=== PATIENT | male | born 1940 | race Caucasian/White ===

== ENCOUNTER 2016-06-27 16:18 | Observation (INO) | payer OTHER ==
--- NOTE | 2016-06-27 17:12 | EDPHY ---
[id number] HPI CHIEF COMPLAINT: Abdominal pain, abdominal bloating, trouble urinating, hematuria, left rib pain HISTORY OF PRESENT ILLNESS: this patient is a 75-year-old male significant past medical history for BPH, previous multiple prostate surgery, presents to the emergency room with abdominal bloating, abdominal pain, trouble urinating, hematuria, and left focal rib pain. Patient states that trouble urinating has been going on for a year, he has to push to urinate and he urinates 20 to 30 cc at a time. Tells me this is normal for him however this has gotten slightly worse with worsening trouble urinating however decided come the emergency room today as his abdomen is feeling more bloating is having more lower abdominal pain across his entire abdomen. He tells me also of note he had left lateral lower rib pain it is closely tender with palpation tells me that he was seen at an urgent care had x-ray and was told that everything was fine could not identify rib fracture. However if he coughs, or you press on his left lateral lower rib he has exquisite pain. Does not remember trauma. He tells me last night he felt worse abdominal pain with abdominal bloating and was having hard time rolling over onto his abdomen to sleep as he has great discomfort. Denies fever, denies diarrhea he does tell me that he took some narcotic pain medicine which has caused him to not have a bowel movement in 5 days. Past Medical History: BPH Past Surgical History: inguinal hernia repair, multiple prostate surgery Social History: denies daily use of drugs, tobacco, occasional alcohol use Family History: noncontributory ROS REVIEW OF SYSTEMS: A comprehensive 10 point review of systems is otherwise negative aside from elements mentioned in the history of present illness. Exam Constitutional triage nursing summary reviewed, vital signs reviewed, awake/ alert. Eyes normal conjunctivae and sclera, EOMI, PERRLA. HENT normal inspection, atraumatic, moist mucus membranes, no epistaxis, neck supple/ no meningismus, no raccoon eyes. Respiratory clear to auscultation bilaterally, normal breath sounds, no respiratory distress, no wheezing. Cardiovascular left chest wall: tender palpation left lateral lower rib no crepitus, no ecchymosis, no flail chest, rate normal, regular rhythm, no murmur , no edema, distal pulses normal. Gastrointestinal soft, hypoactive bowel sounds, mildly tender across the mid abdomen, no rebound, no guarding, normal bowel sounds, no distension, no pulsatile mass. Genitourinary no CVA tenderness. Musculoskeletal no midline vertebral tenderness, full range of motion, no calf swelling, no tenderness of extremities, no meningismus, good pulses, neurovascularly intact. Skin pink, warm, & dry, no rash, skin atraumatic. Neurologic awake, alert and oriented x 3, AAOx3, moves all 4 extremities equally, motor intact, sensory intact, CN II-XII intact, normal cerebellar, normal vision, normal speech. Psychiatric normal mood/affect. Heme/Lymph/Immune no lymphadenopathy. Differential diagnosis includes but is not limited to and in no particular order : UTI, cystitis, urinary obstruction, BPH, prostate bleed Bowel obstruction, appendicitis, gallbladder disease, diverticulitis, colitis, enteritis, perforated viscus, gastritis, GERD, esophagitis, urinary tract infection, pyelonephritis, kidney stones Medical Decision Making: this patient had an IV established, we will check blood work, patient had a CT scan abdomen pelvis with IV contrast to rule out acute intra-abdominal pathology, check urinalysis, bladder scanned for retained urine, received IV fluids he does not want pain medicine or nausea medicine at this time. Re-evaluation: CT scan of the abdomen pelvis with IV contrast The results of the study are shows left lower lobe pneumonia, pleural effusion. The study was read by Dr. Gerard I viewed the images myself on the PACS system. 1943: Re-evaluation at this time patient CT abdomen pelvis does show a left lower lobe pneumonia with pleural effusion this could be a pulmonary infarct with underlying PE however due to the contrast load in the emergency room I am unable at this time to do an angiogram. I will admit him for further evaluation of this left lower lobe pneumonia he does have reproducible pleuritic pain on exam as well as inspiratory pleuritic pain. As for his abdominal pain and hematuria have not found anything acute explain the specifically there is no ruptured AAA, renal mass or bladder mass. I will admit this patient for further evaluation of this left lower lobe infiltrate still not ruled out pulmonary embolism. I spoke with Dr. Mixon she requested they do a D-dimer, EKG, troponin, ultrasound bilateral lower extremities this is all been ordered however I still feel that the patient will need to be admitted I will Lovenox the patient. EKG interpretation by me on record in [employer] system. Impression Time of EKG 1956, sinus rhythm rate of 73, no acute ischemic changes specifically no ST elevation, ST depression, T-wave abnormality prolonged intervals. Unremarkable EKG there is a left anterior fascicular block. 2040: Is noted this patient does have a positive D-dimer. Left lower lobe infiltrate pleural effusion possibly lung infarct underlying PE will need further evaluation of this. I did Lovenox this patient 1 milligram/kilogram. Ultrasound of the A bilateral lower extremity. The results of the study are negative for DVTs. I discussed the results of this study with the radiologist Dr. Cottrell Source: Patient - Personal History Current Tetanus Diphtheria and Acellular Pertussis (TDAP): Yes - Medical/Surgical History Hx Asthma: No Hx Chronic Respiratory Disease: No Hx Diabetes: No Hx Cardiac Disease: No Hx Renal Disease: No Hx Cirrhosis: No Hx Alcoholism: No Hx HIV/AIDS: No Hx Splenectomy or Spleen Trauma: No Other PMH: prostate CA - Social History Smoking Status: Former smoker Constitutional: Initial Vital Signs Temperature (C) 36.8 C 06/27/16 16:20 Heart Rate 79 06/27/16 16:20 Respiratory Rate 18 06/27/16 16:20 Blood Pressure 140/86 H 06/27/16 16:20 O2 Sat (%) 94 06/27/16 16:20 O2 Delivery Mode Room Air Allergies/Adverse Reactions: No Known Allergies Allergy (Verified 06/27/16 16:18) Home Medications: Medication Instructions Recorded Aspirin EC [Aspirin EC 81 mg (*)] 81 mg PO DAILY 06/27/16 diphenhydrAMINE [Benadryl 25 MG 25 mg PO HS 06/27/16 (*)] Medical Decision Making - Data Points Laboratory Results: Laboratory Results 06/27/16 17:45 06/27/16 17:45 Medications Given: Discontinued Medications Aspirin Buffered (Aspirin Ec) 81 mg PO DAILY MENDEZ Stop: 12/25/16 14:59 Last Admin: 06/28/16 15:13 Dose: Not Given Enoxaparin Sodium (Lovenox) 78 mg SC EDNOW ONE Stop: 06/27/16 19:46 Last Admin: 06/27/16 20:12 Dose: 78 mg Sodium Chloride (Ns) 1,000 mls @ 0 mls/hr IV ONCE ONE PRN Reason: Wide Open Stop: 06/27/16 17:22 Last Admin: 06/27/16 18:03 Dose: 1,000 mls Azithromycin 500 mg/ Dextrose 255 mls @ 255 mls/hr IV EDNOW ONE PRN Reason: Protocol Stop: 06/27/16 20:19 Last Admin: 06/27/16 20:10 Dose: 255 mls Ceftriaxone Sodium/Dextrose (Rocephin 1 Gm (Premix)) 50 mls @ 100 mls/hr IV EDNOW ONE PRN Reason: Protocol Stop: 06/27/16 19:49 Last Admin: 06/27/16 19:30 Dose: 50 mls Sodium Chloride (Ns) 1,000 mls @ 125 mls/hr IV CONT MENDEZ Stop: 12/24/16 23:29 Last Admin: 06/28/16 13:56 Dose: 1,000 mls Magnesium Citrate (Magnesium Citrate) 300 ml PO ONCE PRN PRN Reason: Constipation Stop: 12/25/16 02:59 Last Admin: 06/28/16 15:13 Dose: 300 ml Polyethylene Glycol (Miralax) 17 gm PO DAILY MENDEZ PRN Reason: Protocol Stop: 12/24/16 23:29 Last Admin: 06/28/16 09:14 Dose: 17 gm Senna/Docusate Sodium (Senokot-S) 1 - 2 tab PO TID MENDEZ PRN Reason: Protocol Stop: 12/24/16 23:29 Last Admin: 06/28/16 15:13 Dose: Not Given Departure - Departure Disposition: [facility] Acute Clinical Impression: Left lower lobe pneumonia Qualifiers: Pneumonia type: due to unspecified organism Qualifier Code: (J18.1) Lobar pneumonia, unspecified organism Condition: Fair
[2016-06-27] MEDS ORDERED: NS 1,000 ML IV ONE (17:21)
[2016-06-27 18:00] LABS: % IMMATURE GRANULYOCYTES 0.6 % (0.0-1.1); ABSOLUTE IMMATURE GRANULOCYTES 0.05 10^3/uL (0.00-0.10); ADD DIFF? NO; ADD MORPH? NO; ADD SCAN? NO; ATYPICAL LYMPHOCYTE FLAG 20 (0-99); FRAGMENT RBC FLAG 0 (0-99); HEMATOCRIT 41.3 % (40.0-51.0); HEMOGLOBIN 14.5 g/dL (13.7-17.5); LEFT SHIFT FLG 0 (0-99); LIPEMIA HEMOLYSIS FLAG 90 (0-99); MEAN CELL HEMOGLOBIN 31.7 pg (27.9-34.1); MEAN CELL HEMOGLOBIN CONCENTR. 35.1 g/dL (32.4-36.7); MEAN CELL VOLUME 90.4 fL (81.5-99.8); MEAN PLATELET VOLUME 8.7 fL (8.7-11.7); PLATELET CLUMPS FLAG 0 (0-99); PLATELET COUNT 232 10^3/uL (150-400); RED BLOOD CELL COUNT 4.57 10^6/uL (4.40-6.38); RED CELL DISTRIBUTION WIDTH 14.2 % (11.5-15.2)
[2016-06-27 18:11] LABS: INR 1.18 (0.83-1.16)
[2016-06-27 18:12] LABS: APTT 34.8 SEC (23.0-38.0)
[2016-06-27 18:22] LABS: ALANINE AMINOTRANSFERASE 43 IU/L (21-72); ALKALINE PHOSPHATASE 57 IU/L (38-126); ANION GAP 11 mEq/L (8-16); ASPARTATE AMINOTRANSFERASE 24 IU/L (17-59); BILIRUBIN,TOTAL 0.8 mg/dL (0.1-1.4); BILIRUBIN-CONJUGATED 0.3 mg/dL (0.0-0.5); BILIRUBIN-UNCONJUGATED 0.5 mg/dL (0.0-1.1); CALCIUM 8.7 mg/dL (8.5-10.4); CARBON DIOXIDE 28 mEq/l (22-31); CHLORIDE 101 mEq/L (97-110); CREATININE 0.9 mg/dL (0.7-1.3); GLOMERULAR FILTRATION RATE > 60; GLUCOSE 109 mg/dL (70-100); POTASSIUM 4.3 mEq/L (3.5-5.2); SODIUM 140 mEq/L (134-144); TOTAL PROTEIN 5.7 g/dL (6.3-8.2)
[2016-06-27 18:22] LABS: COLOR YELLOW; LEUKOCYTE ESTERASE,URINE NEGATIVE (NEGATIVE); NITRITE,URINE NEGATIVE (NEGATIVE)
[2016-06-27 18:25] LABS: MUCUS TRACE /lpf (NONE-1+)
[2016-06-27 18:26] LABS: BACTERIA NONE SEEN /hpf (NONE SEEN)
[2016-06-27] MEDS ORDERED: IOPAMIDOL (ISOVUE 370) 100 ML BTL IV ONE (18:50)
[2016-06-27] MEDS ORDERED: AZITHROMYCIN IV 500 MG in D5W 250 ML IV ONE (19:20)
--- NOTE | 2016-06-27 19:28 | CT ---
CT Scan of the Abdomen and Pelvis (With Contrast) 1859 hours History: Abdominal pain, bloating, difficulty urinating, left lower rib pain. Comparison: CT pelvis March 2011 Technique: Axial computed tomographic images of the abdomen and pelvis were obtained with the unevent ful intravenous administration of 85 mL Isovue-300 contrast. No oral or rectal contrast which limits the study. Dose reduction techniques were utilized. CT Abdomen Findings: Lung bases: Small left pleural effusion with left lower lobe infiltrate. 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 Liver: Probable hepatic cysts the left lobe of liver measuring 1 cm without suspicious solid hepatic masses. Biliary system: No obstruction. Spleen: No splenomegaly or infarcts. Pancreas: Normal. Adrenals: Normal. Kidneys: No obstruction or solid masses. no evidence of pyelonephritis. Abdominal Aorta: Moderate atherosclerotic tortuous aorta without aneurysm or dissection. Large amount stool throughout the colon consistent with constipation. No evidence of bowel obstructio n or colitis. CT Pelvis Findings: Appendix appears normal without inflammatory changes. However there is a small am ount of fluid in the right side of the pelvis which extends into a right inguinal hernia with mesente siena fat. No bowel extending into the hernia. Moderate stool in the rectosigmoid colon. Bladder measur es 7.8 x 7 x 7.5 cm is only mildly distended. Prostate measures 5 x 2.9 x 4.2 cm with some calcificat ions and probable prior TURP defect. Severe degenerative disk disease lumbar spine especially at L2-L3, L3-L4 L4-L5 with facet arthropathy resulting in moderate central canal stenosis. Impression: 1. Small left pleural effusion with left lower lobe infiltrate probably representing pneumonia, altho ugh pulmonary infarct cannot be excluded. 2. 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 3. Constipation without bowel obstruction. 4. No urinary tract obstruction. 5. Right inguinal hernia with mesenteric fat and inflammatory changes. Consider surgical consult. 6. No evidence of appendicitis. 7. Please see above findings. Findings and recommendations discussed with Emergency Department physician, Dr. Eber Field at 19 15 hour, today. Final report concurs with initial preliminary interpretation.
[2016-06-27] MEDS ORDERED: ENOXAPARIN 80 MG/0.8 ML SYR SC ONE (19:45)
--- NOTE | 2016-06-27 19:59 | CPEKG ---
Heart Rate: 73 RR Interval: 822 P-R Interval: 188 QRSD Interval: 84 QT Interval: 392 QTC Interval: 432 P Lawrence: 37 QRS Lawrence: -50 T Wave Lawrence: 23 EKG Severity - ABNORMAL ECG - EKG Impression: SINUS RHYTHM EKG Impression: LAD, CONSIDER LEFT ANTERIOR FASCICULAR BLOCK Electronically Signed By: Mio Tamez 27-Jun-2016 20:16:23
--- NOTE | 2016-06-27 21:04 | US ---
Bilateral Lower Extremity Deep Duplex Venous Ultrasound - June 27, 2016 Indication: Abdominal pain and bloating. Technique: The right and left lower extremity deep venous system and veins of the proximal calves wer e interrogated with grayscale, color, and spectral Doppler imaging. Findings: The right and left common femoral, femoral, popliteal, greater saphenous, and paired switchboard and control room operator ior tibial and peroneal veins of the calves normally compress on grayscale imaging. The right and lef t leg deep venous system have reflected cardiac phasicity. Slow rouleaux flow is demonstrated in the right popliteal vein. Impression: Negative. No deep venous thrombosis in the right or left lower extremity. Comment: The results were discussed with Dr. Eber Field, at 8:58 p.m. on June 27, 2016.
[2016-06-27] MEDS ORDERED: ACETAMINOPHEN 500 MG TAB PO PRN (23:21)
[2016-06-27] MEDS ORDERED: ONDANSETRON DISINTEGRATING 4 MG TAB PO PRN (23:21)
[2016-06-27] MEDS ORDERED: ONDANSETRON 4 MG/2 ML VIAL IVP PRN (23:21)
[2016-06-27] MEDS ORDERED: BISACODYL 10 MG SUPP PR PRN (23:24)
[2016-06-28] MEDS: NS 1,000 ML IV SCH ×2 (00:21→13:56)
[2016-06-28] MEDS: SENNOSIDES/DOCUSATE SODIUM TAB PO SCH ×3 (01:14→15:13)
[2016-06-28] MEDS: POLYETHYLENE GLYCOL 3350 17 GM PKT PO SCH ×2 (01:14→09:14)
[2016-06-28] MEDS ORDERED: MAGNESIUM CITRATE 300 ML BOTTLE PO PRN (03:00)
[2016-06-28 05:02] LABS: % IMMATURE GRANULYOCYTES 0.7 % (0.0-1.1); ABSOLUTE IMMATURE GRANULOCYTES 0.06 10^3/uL (0.00-0.10); ADD DIFF? NO; ADD MORPH? NO; ADD SCAN? NO; ATYPICAL LYMPHOCYTE FLAG 20 (0-99); FRAGMENT RBC FLAG 0 (0-99); HEMATOCRIT 41.9 % (40.0-51.0); HEMOGLOBIN 14.2 g/dL (13.7-17.5); LEFT SHIFT FLG 10 (0-99); LIPEMIA HEMOLYSIS FLAG 90 (0-99); MEAN CELL HEMOGLOBIN 30.6 pg (27.9-34.1); MEAN CELL HEMOGLOBIN CONCENTR. 33.9 g/dL (32.4-36.7); MEAN CELL VOLUME 90.3 fL (81.5-99.8); PLATELET CLUMPS FLAG 0 (0-99); PLATELET COUNT 252 10^3/uL (150-400); RED BLOOD CELL COUNT 4.64 10^6/uL (4.40-6.38); RED CELL DISTRIBUTION WIDTH 14.1 % (11.5-15.2)
[2016-06-28 05:15] LABS: INR 1.22 (0.83-1.16); PROTIME(PATIENT) 15.4 SEC (12.0-15.0)
[2016-06-28 05:16] LABS: APTT 40.4 SEC (23.0-38.0)
[2016-06-28 05:25] LABS: ANION GAP 9 mEq/L (8-16); CALCIUM 8.4 mg/dL (8.5-10.4); CARBON DIOXIDE 27 mEq/l (22-31); CHLORIDE 104 mEq/L (97-110); CREATININE 0.7 mg/dL (0.7-1.3); GLOMERULAR FILTRATION RATE > 60; GLUCOSE 109 mg/dL (70-100); SODIUM 140 mEq/L (134-144)
[2016-06-28 05:36] LABS: TROPONIN I 0.016 ng/mL (0-0.034)
--- NOTE | 2016-06-28 06:31 | PDGENHP ---
History and Physical - Chief Complaint L back pain, constipation - History of Present Illness Patient is a 75-year-old male with no significant past medical history who presents to the ED complaining of left-sided back pain. Patient states symptoms started on 06/23 when he suddenly felt sharp pain in his left mid back/flank. He had been lifting paint cans the day prior and attributed the pain to musculoskeletal cause. He went to the urgent care for further evaluation due to the severity of the pain, chest x-ray was ordered and did not reveal any acute fracture. He was given a prescription for opioid pain and discharge. Patient will went home, was compliant with the the pain medicines and reported some improvement in symptoms. However since starting these medicines he has been unable to have a bowel movement now 5 days. Denies any nausea, vomiting but does today report loss of appetite due to abdominal distention. Given the symptoms he decided to to the ED for further evaluation. On arrival to the ED patient was afebrile hemodynamically stable. He is complaining of abdominal pain so a CT abdomen and pelvis was obtained without IV contrast. This revealed constipation without obstruction, inguinal hernia, and lower lung thompson also revealed left pleural effusion with patchy infiltrate consistent with either consolidation versus pulmonary infarct. Given patient's complaint of pleuritic left-sided posterior pain concern was for PE with pulmonary infarct. D-dimer was checked, was noted to be elevated, so patient was given empiric systemic anticoagulation with Lovenox. He was also given coverage for community-acquired pneumonia with ceftriaxone and azithromycin. He was then admitted to the hospital service for further management. History Information - Allergies/Home Medication List Allergies/Adverse Reactions: No Known Allergies Allergy (Verified 06/27/16 16:18) Home Medications: Aspirin EC [Aspirin EC 81 mg (*)] 81 mg PO DAILY 06/27/16 [Last Taken 06/26/16] diphenhydrAMINE [Benadryl 25 MG (*)] 25 mg PO HS 06/27/16 [Last Taken 06/26/16] I have personally reviewed and updated: family history, medical history, social history, surgical history - Past Medical History no pertinent PMH - Surgical History Additional surgical history: Inguinal hernia repair. Shoulder repair - Family History Positive for: non-pertinent - Social History Smoking Status: Former smoker (Quit 30 years ago) Alcohol Use: None Drug Use: None Additional social history: Works in a [employer]. Lives with Review of Systems ROS: 10pt was reviewed & negative except for what was stated in HPI & below Physical Exam Temp Pulse Resp BP Pulse Ox 36.6 C 71 18 139/73 H 92 06/28/16 03:30 06/28/16 03:30 06/28/16 03:30 06/28/16 03:30 06/28/16 03:30 O2 (L/minute) 2 Constitutional: no apparent distress, appears nourished, not in pain Eyes: PERRL, anicteric sclera, EOMI Ears, Nose, Mouth, Throat: moist mucous membranes, hearing normal, ears appear normal, no oral mucosal ulcers Cardiovascular: regular rate and rhythym, no murmur, rub, or gallop, pulses symmetric bilaterally, No JVD, No edema Peripheral Pulses: 2+: dorsalis-pedis (R), dorsalis-pedis (L) Respiratory: no respiratory distress, no rales or rhonchi, clear to auscultation Gastrointestinal: normoactive bowel sounds, soft, non-tender abdomen, no palpable masses, distension (Mild), No guarding, No rebound Genitourinary: no bladder fullness, no bladder tenderness Skin: warm, normal color, no rashes or abrasions, no fluctuance, no induration, No mottled Musculoskeletal: full muscle strength, no muscle tenderness, normal joint ROM, no joint effusions Neurologic: AAOx3, sensation intact bilaterally, CN II-XII Intact, No weakness, No numbness Psychiatric: interacting appropriately, not anxious, not encephalopathic, thought process linear Lab Data & Imaging Review 06/28/16 04:34 06/28/16 04:34 WBC 9.12 10^3/uL (3.80-9.50) 06/28/16 04:34 RBC 4.64 10^6/uL (4.40-6.38) 06/28/16 04:34 Hgb 14.2 g/dL (13.7-17.5) 06/28/16 04:34 Hct 41.9 % (40.0-51.0) 06/28/16 04:34 MCV 90.3 fL (81.5-99.8) 06/28/16 04:34 MCH 30.6 pg (27.9-34.1) 06/28/16 04:34 MCHC 33.9 g/dL (32.4-36.7) 06/28/16 04:34 RDW 14.1 % (11.5-15.2) 06/28/16 04:34 Plt Count 252 10^3/uL (150-400) 06/28/16 04:34 MPV 9.0 fL (8.7-11.7) 06/28/16 04:34 Neut % (Auto) 78.8 % (39.3-74.2) H 06/28/16 04:34 Lymph % (Auto) 8.0 % (15.0-45.0) L 06/28/16 04:34 Ballard % (Auto) 11.6 % (4.5-13.0) 06/28/16 04:34 Eos % (Auto) 0.7 % (0.6-7.6) 06/28/16 04:34 Baso % (Auto) 0.2 % (0.3-1.7) L 06/28/16 04:34 Nucleat RBC Rel Count 0.0 % (0.0-0.2) 06/28/16 04:34 Absolute Neuts (auto) 7.19 10^3/uL (1.70-6.50) H 06/28/16 04:34 Absolute Lymphs (auto) 0.73 10^3/uL (1.00-3.00) L 06/28/16 04:34 Absolute Monos (auto) 1.06 10^3/uL (0.30-0.80) H 06/28/16 04:34 Absolute Eos (auto) 0.06 10^3/uL (0.03-0.40) 06/28/16 04:34 Absolute Basos (auto) 0.02 10^3/uL (0.02-0.10) 06/28/16 04:34 Absolute Nucleated RBC 0.00 10^3/uL (0-0.01) 06/28/16 04:34 Immature Gran % 0.7 % (0.0-1.1) 06/28/16 04:34 Immature Gran # 0.06 10^3/uL (0.00-0.10) 06/28/16 04:34 PT 15.4 SEC (12.0-15.0) H 06/28/16 04:34 INR 1.22 (0.83-1.16) H 06/28/16 04:34 APTT 40.4 SEC (23.0-38.0) H 06/28/16 04:34 D-Dimer 1.35 ug/mLFEU (0.00-0.50) H 06/27/16 17:45 VBG Lactic Acid 0.9 mmol/L (0.7-2.1) 06/27/16 17:45 Sodium 140 mEq/L (134-144) 06/28/16 04:34 Potassium 4.0 mEq/L (3.5-5.2) 06/28/16 04:34 Chloride 104 mEq/L (97-110) 06/28/16 04:34 Carbon Dioxide 27 mEq/l (22-31) 06/28/16 04:34 Anion Gap 9 mEq/L (8-16) 06/28/16 04:34 BUN 10 mg/dL (7-23) 06/28/16 04:34 Creatinine 0.7 mg/dL (0.7-1.3) 06/28/16 04:34 Estimated GFR > 60 06/28/16 04:34 Glucose 109 mg/dL (70-100) H 06/28/16 04:34 Calcium 8.4 mg/dL (8.5-10.4) L 06/28/16 04:34 Magnesium 2.0 mg/dL (1.6-2.3) 06/28/16 04:34 Total Bilirubin 0.8 mg/dL (0.1-1.4) 06/27/16 17:45 Conjugated Bilirubin 0.3 mg/dL (0.0-0.5) 06/27/16 17:45 Unconjugated Bilirubin 0.5 mg/dL (0.0-1.1) 06/27/16 17:45 AST 24 IU/L (17-59) 06/27/16 17:45 ALT 43 IU/L (21-72) 06/27/16 17:45 Alkaline Phosphatase 57 IU/L (38-126) 06/27/16 17:45 Troponin I 0.016 ng/mL (0-0.034) 06/28/16 04:34 Total Protein 5.7 g/dL (6.3-8.2) L 06/27/16 17:45 Albumin 3.0 g/dL (3.5-5.0) L 06/27/16 17:45 Lipase 35.0 IU/L (23-300) 06/27/16 17:45 Urine Color YELLOW 06/27/16 17:50 Urine Appearance CLEAR 06/27/16 17:50 Urine pH 7.0 (5.0-7.5) 06/27/16 17:50 Ur Specific [place] 1.012 (1.002-1.030) 06/27/16 17:50 Urine Protein NEGATIVE (NEGATIVE) 06/27/16 17:50 Urine Ketones NEGATIVE (NEGATIVE) 06/27/16 17:50 Urine Blood 1+ (NEGATIVE) H 06/27/16 17:50 Urine Nitrate NEGATIVE (NEGATIVE) 06/27/16 17:50 Urine Bilirubin NEGATIVE (NEGATIVE) 06/27/16 17:50 Urine Urobilinogen NEGATIVE EU (0.2-1.0) 06/27/16 17:50 Ur Leukocyte Esterase NEGATIVE (NEGATIVE) 06/27/16 17:50 Urine RBC 1-3 /hpf (0-3) 06/27/16 17:50 Urine WBC 1-3 /hpf (0-3) 06/27/16 17:50 Ur Epithelial Cells NONE SEEN /lpf (NONE-1+) 06/27/16 17:50 Urine Bacteria NONE SEEN /hpf (NONE SEEN) 06/27/16 17:50 Urine Mucus TRACE /lpf (NONE-1+) 06/27/16 17:50 Ur Culture Indicated? NOT INDICATED (NI) 06/27/16 17:50 Urine Glucose NEGATIVE (NEGATIVE) 06/27/16 17:50 Visualized and Interpreted Chest x-ray results: Yes Chest X-Ray results: other (06/23 study: Small left-sided pleural effusion) Visualized and Interpreted imaging results: Yes Interpretation: CT abdomen pelvis: Constipation, no obstruction, left lower lobe infiltrate and effusion Visualized and Interpreted EKG results: Yes EKG Interpretation: Positive for: normal sinsus rhythm (With inferior Q-waves) Assessment & Plan Assessment: Patient is a 75-year-old male with no significant past medical history presents to the ED with sharp, pleuritic-type left midback pain and constipation. ED evaluation reveals left lower lobe pleural effusion and infiltrate concerning for either community-acquired pneumonia versus pulmonary embolism resulting in pulmonary infarct. Plan: # left lower lobe infiltrate with effusion Patient is afebrile, without leukocytosis, denies any symptoms of cough or respiratory infection. He is complaining of sharp posterior left pain with inspiration. Differential includes pulmonary embolism with resulting infarct versus a community-acquired pneumonia with effusion. Patient was given a contrast load 1 CT abdomen was obtained so CT angio to rule out pulmonary embolism was deferred in the ED. He was empirically treated for both pulmonary embolism and community-acquired pneumonia. He has been given IV fluid hydration overnight and will obtain CT angio to rule out the this a.m.. Will hold off on systemic anticoagulation until studies complete. It is also possible patient had musculoskeletal pain resulting and splinting with resultant atelectasis and effusion without infectious etiology. - cont abx coverage for presumed CAP - obtain CT angio chest to r/o PE - IVF hydration: NS @ 125cc/hr - trend troponins, repeat EKG - check TTE - hold on further lovenox until CT is complete # constipation Pt has not had a BM since taking opioid pain med for his back pain. Will initiate bowel regimen and hold opioids. Will give enema. - senna/colace/miralax - mg citrate, dulcolax supp prn # dispo: admit to inpt service for > 2 MN # gen: regular diet DVT ppx: given lovenox FUll code
[2016-06-28 07:42] VITALS: RESP 16
[2016-06-28] MEDS ORDERED: IOPAMIDOL (ISOVUE 370) 100 ML BTL IV ONE (07:55)
--- NOTE | 2016-06-28 10:43 | CT ---
CT Chest Angiogram Indication: Left basilar consolidation. Evaluate for pulmonary embolism. Technique: Thinly collimated multidetector helical CT imaging was performed through the chest while 90 mL of Isovue-370 were injected intravenously without complication. The images were then transferr ed to an independent workstation where multiplanar reconstructions were performed. Dose reduction benigno hniques were utilized. Comparison: CT abdomen and pelvis, June 27, 2016. Findings: CT Chest Angiogram: The central pulmonary arterial system is diagnostically opacified. No central pu lmonary embolism. The subsegmental distribution of bilateral lower lobes is partially obscured by res piratory motion artifact and left basilar consolidation. No definite subsegmental filling defect. The thoracic aorta is normal caliber with mild calcified plaque. No dissection. CT Chest: An acute nondisplaced left posterior lateral 9th rib fracture on image 234 of series 2 has moderate associated left chest wall hematoma. A subacute right 7th rib fracture in the midaxillary li ne has healing callus. No other rib fractures. No compression fracture or bone lesion. There is a small layering left pleural effusion. Volume loss and consolidation, likely atelectasis, i nvolving the posterior segment left upper lobe and left lower lobe have not significantly changed sin ce one day prior. The right lung remains clear. No edema or endobronchial lesion. No suspicious pulmo nary nodule. A noncalcified pleural plaque along the anterior left hemithorax and calcified plaque al manav the right and left hemidiaphragms are both unchanged. The heart size is normal. No pericardial or right-sided effusion. No enlarged lymph node or mass thro ughout the axilla, mediastinum, or pulmonary jonel. Scattered benign calcified granulomas are present in the left hilum and spleen. Impression: 1. No evidence of acute thrombopulmonary embolic disease. The subsegmental distribution of bilateral lower lobes is partially obscured by motion artifact. 2. Nondisplaced left 9th rib fracture with associated chest wall hematoma. No evidence of active blee ding. 3. Small layering left pleural effusion and left basilar atelectasis are likely due to the nondisplac ed 9th rib fracture. 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
--- NOTE | 2016-06-28 11:18 | ECHO ---
[id number] + + [id number] : : [place] [address] : : [phone] + + Adult Echocardiographic Report + ---+ :Name: FELICIA VITALE JStudy Date: 06/28/2016 07:54 AM : : Hospital Admission Number: [id number] Location: 217: :: 1940 Gender: Male Height: 64 in : :Age: 75 yrs Race: WH Weight: 175 lb : :Reason For Study: Possible PE/R/O heart strain : : BSA: 1.8 meters2 : + ---+ MMode/2D Measurements & Calculations IVSd: 0.76 cm LVIDd: 5.1 cm FS: 45.9 % Ao root diam: LVPWd: 0.95 cm LVIDs: 2.8 cm EDV(Teich): 3.8 cm 123.8 ml LA dimension: ESV(Teich): 4.1 cm 28.5 ml EF(Teich): 77.0 % LVLd ap4: 8.5 cm SV(MOD-sp4): EDV(MOD-sp4): 62.0 ml 84.0 ml LVLs ap4: 6.4 cm ESV(MOD-sp4): 22.0 ml EF(MOD-sp4): 73.8 % Normal Measurement Values: + + :LVIDd (3.5-5.7cm) IVSd (0.6-1.1cm) LVPWd (0.6-1.1cm) Aortic Root (2.0-3.7cm)Left Atrium (1.5-4.0cm): :LV Vol(d) (76-115ml) LV Vol(s) (29-48ml) Ejec Fraction (50-65%)PV Harvinder (0.6- 1.2m/s) TV Harvinder (0.4-1.0m/s) : :MV E Harvinder (0.8-1.0m/s)MV A Harvinder (0.3-1.0m/s)LVOT Harvinder (0.7-1.2m/s) Asc Ao Harvinder ( 0.9-1.8m/s) : + + Doppler Measurements & Calculations MV E max harvinder: 81.4 cm/sec Ao V2 max: 153.0 cm/sec MV A max harvinder: 94.8 cm/sec Ao max P.4 mmHg MV E/A: 0.86 Ao mean P.0 mmHg Ao V2 mean: 101.0 cm/sec Ao V2 VTI: 32.2 cm Left Ventricle The left ventricle is normal in size. There is normal left ventricular wall thickness. Left ventricular systolic function is normal. Ejection Fraction = 65-70%. No regional wall motion abnormalities noted. Right Ventricle The right ventricle is normal in size and function. Atria The left atrial size is normal. Right atrial size is normal. Mitral Valve The mitral valve is normal in structure and function. There is no evidence of mitral valve prolapse. There is no mitral valve stenosis. Tricuspid Valve Normal tricuspid valve. There is trace tricuspid regurgitation. Aortic Valve The aortic valve is trileaflet. The aortic valve opens well. There is no aortic stenosis. Trace aortic regurgitation. Pulmonic Valve The pulmonic valve is normal in structure and function. Trace pulmonic valvular regurgitation. Great Vessels The aortic root is normal size. Mildly dilated ascending aorta. Pericardium/Pleural There is no pericardial effusion. Conclusion A complete two-dimensional transthoracic echocardiogram was performed (2D, M-mode, Doppler and color flow Doppler). Left ventricular systolic function is normal. Ejection Fraction = 65-70%. Normal LV wall motion RV is normal in size and systolic function Trace aortic regurgitation. There is trace tricuspid regurgitation. Trace pulmonic valvular regurgitation. Mildly dilated ascending aorta. No prior echo Final Reading Physician: Dr Mindy Romano electronically signed on 06/28/2016 11:17 AM Ordering Physician: Sonal Mixon Performed By: Angela Morfin, VERONICACS
[2016-06-28 11:49] VITALS: BP 115/64; PULSE 60; TEMP 97.9; O2SAT 93
--- NOTE | 2016-06-28 14:48 | HOSPPROG ---
Hospitalist Progress Note Assessment/Plan: 75 yo M w cp, rib fx,, neg eval home today see dc summary Subjective: CT NEG FOR PE, SHOWED RIB FX Objective: Vital Signs Temp Pulse Resp BP Pulse Ox 36.6 C 60 16 115/64 93 06/28/16 11:49 06/28/16 11:49 06/28/16 11:49 06/28/16 11:49 06/28/16 11:49 Laboratory Results 06/28/16 04:34 06/28/16 04:34 06/27/16 06/28/16 06/29/16 05:59 05:59 05:59 Intake Total 440 900 Output Total 800 200 Balance -360 700 PT 15.4 SEC (12.0-15.0) H 06/28/16 04:34 INR 1.22 (0.83-1.16) H 06/28/16 04:34 - Physical Exam Constitutional: no apparent distress, appears nourished Eyes: PERRL, anicteric sclera Ears, Nose, Mouth, Throat: moist mucous membranes, hearing normal Cardiovascular: regular rate and rhythym, no murmur, rub, or gallop Respiratory: no respiratory distress, no rales or rhonchi Gastrointestinal: normoactive bowel sounds, soft, non-tender abdomen Genitourinary: No sorensen in urethra Skin: warm, normal color Musculoskeletal: full muscle strength Neurologic: AAOx3 ICD10 Worksheet Patient Problems: Problems Problem Status Diagnosed Left lower lobe pneumonia Acute
[2016-06-28] MEDS ORDERED: ASPIRIN EC 81 MG TAB PO SCH (15:00)
--- NOTE | 2016-06-28 15:04 | GDS ---
[f rep st] DISCHARGE SUMMARY DISCHARGE DIAGNOSES: 1. Left 9th rib fracture with associated small pleural effusion and pain. 2. Constipation. 3. Chest pain, attributable to rib fracture. HOSPITAL COURSE: Please see admission history and physical by Dr. Ellen Mata. The patient pre sented with chest pain and abdominal pain. CT showed a fair amount of constipation and left 9th rib fracture with effusion and lower lobe infiltrate. There was concern for pulmonary embolism. Lower e xtremity ultrasounds were negative for DVT. He had a CTA that was negative for clot, but confirmed r ib fracture with adjacent pulmonary contusion. He had an echocardiogram that was essentially unremar kable. He had negative troponins. No events on telemetry. He was given bowel medicines and moved h is bowels. Was discharged home without further workup or intervention. /[id number]/MODL
[2016-06-28] MEDS ORDERED: diphenhydrAMINE 25 MG CAP PO SCH (21:00)
== END 2016-06-28 15:47 | disposition home or self-care (01) ==
LOC: INTOOBSV 19:42 → F2W 21:10
PROVIDERS: ADMIT Internal Medicine; ATTEND Internal Medicine
DX: S22.32XA Fracture of one rib, left side, initial encounter for closed fracture (principal); J90 Pleural effusion, not elsewhere classified; J94.8 Other specified pleural conditions; K59.00 Constipation, unspecified; R07.9 Chest pain, unspecified; X58.XXXA Exposure to other specified factors, initial encounter; R10.9 Unspecified abdominal pain; N40.1 Benign prostatic hyperplasia with lower urinary tract symptoms; K40.90 Unilateral inguinal hernia, without obstruction or gangrene, not specified as recurrent; Z85.46 Personal history of malignant neoplasm of prostate; Z87.891 Personal history of nicotine dependence
CPT/HCPCS: 71275; 74177; 93005; 93306; 93970; 96361; 96365; 96367; 96372; 99285; G0378; J0456; J0696; J1650; Q9967

== ENCOUNTER → 2016-07-11 | Outpatient (CLI) | payer OTHER ==
--- NOTE | 2016-07-11 16:58 | NM ---
Nuclear Medicine Whole Body Bone Scan at 1245 hours Clinical Indications: Prostate cancer. Rib fractures. C 61 Comparison Studies: CT June 28, 2016 Technique: 20.7 mCi technetium 99m MDP were injected intravenously. Delayed images of the skeleton were obtained in anterior and posterior projections. Findings: Increased activity focally in the anterior aspect of the right seventh rib and in the anter ior aspect of the left eighth rib which correspond to fractures on CT June 28, 2016. Increased uptake involving the left glenohumeral joint consistent with degenerative arthropathy. Incr eased uptake involving the left sternoclavicular joint also likely degenerative. Mild uptake in the m idsternum without definite destructive osseous lesion on CT. Uptake involving bilateral wrists which are also likely degenerative. Uptake involving the medial left tibiofemoral compartment, right patell a and medial right tibiofemoral compartment also likely degenerative. Uptake involving the right ankl e and right tarsal bones as well as right second metatarsophalangeal joint also likely degenerative. Increased uptake involving the left L5-S1 disc space region also likely degenerative. IMPRESSION: 1. Right seventh and left eighth rib fractures. 2. Degenerative uptake in multiple joints as described above. 3. No definite evidence of osseous metastasis.
== END ==
LOC: FIMAGING 10:35
PROVIDERS: ATTEND Urology
DX: M84.48XA Pathological fracture, other site, initial encounter for fracture (principal); C61 Malignant neoplasm of prostate
CPT/HCPCS: 78306; A9503

== ENCOUNTER 2017-01-25 07:41 | Emergency (ER) | payer OTHER ==
--- NOTE | 2017-01-25 07:51 | EDPHY ---
H & P Time Seen by Provider: 01/25/17 07:45 HPI/ROS: HPI Right-sided back pain. 68-year-old male by private vehicle. This patient reports that yesterday evening he was walking down his carpeted stairs. His heel slipped out on the edge of the step he fell and landed on his right buttock. He reports that after this he was ambulatory. He did not hit his head. He is not on anticoagulants. There was no loss of consciousness. He reports that the rest of his evening was unremarkable and he went to sleep without issue. He reports waking up this morning he has had right-sided mid paraspinal pain described as sharp and cramping. No gross hematuria. He denies any loss of sensation or weakness in his extremities. No bowel or bladder incontinence. No fever. He denies any extremity pain. No other complaints. ROS: Constitutional: No fever, no chills. No weakness. Eyes: No discharge. No changes in vision. ENT: No sore throat. No nasal congestion or rhinorrhea. Respiratory: No cough. No shortness of breath. Cardiac: No chest pain, no palpitations. Gastrointestinal: No abdominal pain, no vomiting, no diarrhea. Genitourinary: No hematuria. No dysuria or increased frequency with urination. Musculoskeletal: As above. No neck pain. No myalgias or arthralgias. Skin: No rashes. Neurological: No headache. No focal weakness or altered sensation. Past medical history: Left 9th rib fracture with associated pleural effusion, admitted to our hospital for this in June of this year. Constipation. Inguinal hernia repair, shoulder surgery, prostate cancer with TURP. Social history: No drugs. No alcohol. Former smoker, quit 30 years ago, lives with his . Physical Exam: General Appearance: Alert, he appears uncomfortable. This patient is responding to questions appropriately and in full sentences. This patient appears well-hydrated and well-nourished. Head: Normocephalic atraumatic. Face: Facial bones are stable on palpation. Eyes: Pupils equal and round and reactive to light, no pallor or injection. No lid erythema or edema. Respiratory: There are no retractions, lungs are clear to auscultation with good air movement bilaterally. Chest wall is stable to AP and lateral palpation. Cardiovascular: Regular rate and rhythm. No murmur. Gastrointestinal: Abdomen is soft and nontender, no masses, bowel sounds normal. Neurological: Motor sensory function is intact. Cranial nerves are normal. Cerebellar function intact. Skin: Warm and dry, no rashes. No lacerations, abrasions. Contusion/ ecchymotic area which is not significantly tender on palpation right upper buttock. Musculoskeletal: Neck is supple and nontender. The trachea is midline. No midline cervical, thoracic, lumbar or sacral tenderness on palpation. Tenderness on palpation which is vague in the paraspinal area approximately T8 through L2 on the right. No associated soft tissue edema/swelling, erythema, warmth, ecchymosis. He is nontender on palpation of the ribs on the right side associated with this area. No bony step-off, deformity or crepitus noted on palpation. He has a negative same side and cross-side straight leg raise test. He is neurologically intact in all myotomes in dermatomes of the bilateral lower extremities. Extremities are symmetrical, full range of motion. All joints in the bilateral upper and bilateral lower extremities range without pain or impingement. No tenderness on palpation of the long bones in the bilateral upper and bilateral lower extremities. Psychiatric: No agitation. No depression. Database: EKG: Imaging: LS spine x-ray series: Degenerative changes with no significant change since prior study in June of this year. Reviewed by myself. Thoracic spine x-ray series: Degenerative features with no significant change since June this year. Reviewed by myself. CT abdomen and pelvis with IV contrast: No evidence of acute traumatic injury. No renal laceration. No acute rib fracture, transverse process fracture or vertebral fracture. No hydronephrosis or evidence of kidney stone. No other significant pathology. Results were discussed with staff radiologist Dr. Cesar Chávez. Procedures: Emergency department course: Vital signs were reviewed. Previous medical records reviewed. No contraindications to NSAIDs. Normal creatinine on June 28 of this year. He will be given 60 mg of IM Toradol and 10 mg of oral Flexeril initially. He will be sent for imaging of his LS spine and thoracic spine. 8:30 a.m., patient has returned from plain film x-rays. He still appears quite uncomfortable. He has some blood in his urine. Presentation could be secondary to a kidney stone being that he did not have any significant discomfort after the initial fall. Also must consider renal laceration with a history of trauma. He will have an IV placed. He will be given 0.5 mg of IV hydromorphone and 500 mg of IV normal saline. He will be sent for a contrast enhanced CT scan of his abdomen and pelvis to evaluate for other pathology. 9:00 a.m., patient's pain is currently well controlled. He is awaiting CT imaging. 9:50 a.m., patient re-evaluated. Results of CT scan, blood work and urine reviewed with him. His pain is well controlled. He is up and ambulatory under his own power with a normal gait. He does feel comfortable going home at this time and I feel he is safe for discharge. Follow-up and return to emergency department precautions have been thoroughly reviewed with him. Fall precautions discussed. All of his questions were answered. He was discharged home in good condition. Differential Diagnosis: The differential diagnosis on this patient includes but is not limited to vertebral compression fracture, muscle spasming of the mid back, sacroiliac joint sprain. Epidural compression syndrome, acute radiculopathy, abdominal aortic aneurysm, epidural abscess, cauda equina syndrome unlikely. This represents a partial list of diagnoses considered. These considerations are based on history, physical exam, past history, reassessment and diagnostic testing. Smoking Status: Former smoker Constitutional: Initial Vital Signs Temperature (C) 37.2 C 01/25/17 07:53 Heart Rate 74 01/25/17 07:53 Respiratory Rate 20 01/25/17 07:53 Blood Pressure 167/98 H 01/25/17 07:53 O2 Sat (%) 95 01/25/17 07:53 O2 Delivery Mode Room Air Allergies/Adverse Reactions: No Known Allergies Allergy (Verified 01/25/17 07:52) Home Medications: Medication Instructions Recorded Aspirin EC [Aspirin EC 81 mg (*)] 81 mg PO DAILY 06/27/16 diphenhydrAMINE [Benadryl 25 MG 25 mg PO HS 06/27/16 (*)] Cyclobenzaprine [Flexeril 10 MG 10 mg PO TID #9 tab 01/25/17 (*)] Medical Decision Making - Diagnostics Imaging Results: Imaging Impressions Lumbar Spine X-Ray 01/25/17 07:57 Impression: Senescent features, with no significant interval change since June. LUMBAR SPINE (AP and Lateral Upright Views, at 8:11 AM): Again noted is a levorotatory lumbar scoliosis. The vertebral body morphology and alignment is very similar to previous studies in June. There is asymmetric degenerative disk space narrowing on the right at L2-L3, and on the left at L4-L5. There is no new lytic or blastic lesion identified. There are prominent ventral traction osteophytes at multiple levels, and there is facet hypertrophy in the mid-to- lower lumbar spine. A lower canal stenosis is not excluded. There is some degenerative subchondral sclerosis of the SI joints. 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 Thoracic Spine X-Ray 01/25/17 07:57 Impression: Senescent features, with no significant interval change since June. LUMBAR SPINE (AP and Lateral Upright Views, at 8:11 AM): Again noted is a levorotatory lumbar scoliosis. The vertebral body morphology and alignment is very similar to previous studies in June. There is asymmetric degenerative disk space narrowing on the right at L2-L3, and on the left at L4-L5. There is no new lytic or blastic lesion identified. There are prominent ventral traction osteophytes at multiple levels, and there is facet hypertrophy in the mid-to- lower lumbar spine. A lower canal stenosis is not excluded. There is some degenerative subchondral sclerosis of the SI joints. 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 Abdomen CT 01/25/17 08:27 Impression: 1. Rotatory lumbar scoliosis, with no acute fracture or substantial change from 06/27/2016. 2. Interim healing of a previously-seen acute lateral left ninth rib fracture and a subacute right lateral seventh rib fracture since previous studies in June. 3. 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 4. Postsurgical changes following a prior right inguinal herniorrhaphy and a prior TURP. 5. Mild subcutaneous edema over the right buttock. Findings were discussed with Jose F Moura MD at 9:47 AM, on 2016. - Data Points Laboratory Results: Laboratory Results 01/25/17 08:34 01/25/17 08:34 01/25/17 01/25/17 01/25/17 08:34 08:34 08:05 WBC 10.92 10^3/uL H 10^3/uL (3.80-9.50) RBC 5.67 10^6/uL 10^6/uL (4.40-6.38) Hgb 17.4 g/dL g/dL (13.7-17.5) Hct 50.7 % % (40.0-51.0) MCV 89.4 fL fL (81.5-99.8) MCH 30.7 pg pg (27.9-34.1) MCHC 34.3 g/dL g/dL (32.4-36.7) RDW 14.2 % % (11.5-15.2) Plt Count 242 10^3/uL 10^3/uL (150-400) MPV 9.1 fL fL (8.7-11.7) Neut % (Auto) 79.6 % H % (39.3-74.2) Lymph % (Auto) 7.6 % L % (15.0-45.0) [place] % (Auto) 9.0 % % (4.5-13.0) Eos % (Auto) 3.0 % % (0.6-7.6) Baso % (Auto) 0.3 % % (0.3-1.7) Nucleat RBC Rel Count 0.0 % % (0.0-0.2) Absolute Neuts (auto) 8.69 10^3/uL H 10^3/uL (1.70-6.50) Absolute Lymphs (auto) 0.83 10^3/uL L 10^3/uL (1.00-3.00) Absolute Monos (auto) 0.98 10^3/uL H 10^3/uL (0.30-0.80) Absolute Eos (auto) 0.33 10^3/uL 10^3/uL (0.03-0.40) Absolute Basos (auto) 0.03 10^3/uL 10^3/uL (0.02-0.10) Absolute Nucleated RBC 0.00 10^3/uL 10^3/uL (0-0.01) Immature Gran % 0.5 % % (0.0-1.1) Immature Gran # 0.06 10^3/uL 10^3/uL (0.00-0.10) Sodium 141 mEq/L mEq/L (134-144) Potassium 4.1 mEq/L mEq/L (3.5-5.2) Chloride 100 mEq/L mEq/L (97-110) Carbon Dioxide 27 mEq/l mEq/l (22-31) Anion Gap 14 mEq/L mEq/L (8-16) BUN 14 mg/dL mg/dL (7-23) Creatinine 0.8 mg/dL mg/dL (0.7-1.3) Estimated GFR > 60 Glucose 143 mg/dL H mg/dL (70-100) Calcium 9.4 mg/dL mg/dL (8.5-10.4) Urine Color YELLOW Urine Appearance CLEAR Urine pH 6.0 (5.0-7.5) Ur Specific Agency 1.020 (1.002-1.030) Urine Protein NEGATIVE (NEGATIVE) Urine Ketones NEGATIVE (NEGATIVE) Urine Blood 1+ H (NEGATIVE) Urine Nitrate NEGATIVE (NEGATIVE) Urine Bilirubin NEGATIVE (NEGATIVE) Urine Urobilinogen 0.2 EU EU (0.2-1.0) Ur Leukocyte Esterase NEGATIVE (NEGATIVE) Urine RBC 10-15 /hpf H /hpf (0-3) Urine WBC 0-1 /hpf /hpf (0-3) Ur Epithelial Cells TRACE /lpf /lpf (NONE-1+) Urine Bacteria TRACE /hpf H /hpf (NONE SEEN) Urine Mucus 2+ /lpf H /lpf (NONE-1+) Urine Yeast OCCASIONAL /hpf H /hpf (NONE SEEN) Urine Glucose NEGATIVE (NEGATIVE) Medications Given: Discontinued Medications Cyclobenzaprine HCl (Flexeril) 10 mg PO EDNOW ONE Stop: 01/25/17 07:58 Last Admin: 01/25/17 08:10 Dose: 10 mg Hydromorphone HCl (Dilaudid) 0.5 mg IVP EDNOW ONE Stop: 01/25/17 08:29 Last Admin: 01/25/17 08:41 Dose: 0.5 mg Sodium Chloride (Ns) 500 mls @ 0 mls/hr IV ONCE ONE; Wide Open PRN Reason: Protocol Stop: 01/25/17 08:27 Last Admin: 01/25/17 08:39 Dose: 500 mls Ketorolac Tromethamine (Toradol) 60 mg IM EDNOW ONE Stop: 01/25/17 07:58 Last Admin: 08/03/17 08:08 Dose: 60 mg Departure - Departure Disposition: Home, Routine, Self-Care Clinical Impression: Mechanical fall, Mid back pain on right side Condition: Good Instructions: Back Pain (ED) Additional Instructions: Read and follow provided instructions. Follow-up with your primary care physician in 1-2 days for re-evaluation. Take medication as prescribed only. Return to the emergency department for worsening pain, vomiting, fever, lightheadedness, loss of sensation or weakness in your legs, bowel or bladder incontinence or other serious concerns. Referrals: Madhuri Krishnan MD [Primary Care Provider] - As per Instructions Prescriptions: Cyclobenzaprine [Flexeril 10 MG (*)] 10 mg PO TID #9 tab
[2017-01-25] MEDS ORDERED: KETOROLAC 30 MG/1 ML SDV IM ONE (07:57)
[2017-01-25] MEDS ORDERED: CYCLOBENZAPRINE 10 MG TAB PO ONE (07:57)
[2017-01-25 08:09] LABS: COLOR YELLOW; LEUKOCYTE ESTERASE,URINE NEGATIVE (NEGATIVE); NITRITE,URINE NEGATIVE (NEGATIVE)
[2017-01-25 08:21] LABS: BACTERIA TRACE /hpf (NONE SEEN); MUCUS 2+ /lpf (NONE-1+); WBC,URINE 0-1 /hpf (0-3); YEAST OCCASIONAL /hpf (NONE SEEN)
[2017-01-25] MEDS ORDERED: NS 500 ML IV ONE (08:26)
[2017-01-25] MEDS ORDERED: HYDROmorphONE/DILAUDID 1 MG/ML SYR IVP ONE (08:28)
[2017-01-25 08:45] LABS: % IMMATURE GRANULYOCYTES 0.5 % (0.0-1.1); ABSOLUTE IMMATURE GRANULOCYTES 0.06 10^3/uL (0.00-0.10); ADD DIFF? NO; ADD MORPH? NO; ADD SCAN? NO; ATYPICAL LYMPHOCYTE FLAG 0 (0-99); FRAGMENT RBC FLAG 0 (0-99); HEMATOCRIT 50.7 % (40.0-51.0); HEMOGLOBIN 17.4 g/dL (13.7-17.5); LEFT SHIFT FLG 0 (0-99); LIPEMIA HEMOLYSIS FLAG 90 (0-99); MEAN CELL HEMOGLOBIN 30.7 pg (27.9-34.1); MEAN CELL HEMOGLOBIN CONCENTR. 34.3 g/dL (32.4-36.7); MEAN CELL VOLUME 89.4 fL (81.5-99.8); MEAN PLATELET VOLUME 9.1 fL (8.7-11.7); PLATELET CLUMPS FLAG 0 (0-99); PLATELET COUNT 242 10^3/uL (150-400); RED BLOOD CELL COUNT 5.67 10^6/uL (4.40-6.38); RED CELL DISTRIBUTION WIDTH 14.2 % (11.5-15.2)
[2017-01-25] MEDS ORDERED: IOPAMIDOL (ISOVUE-300) 100 ML BTL ONE (08:58)
[2017-01-25 09:01] LABS: ANION GAP 14 mEq/L (8-16); CALCIUM 9.4 mg/dL (8.5-10.4); CARBON DIOXIDE 27 mEq/l (22-31); CHLORIDE 100 mEq/L (97-110); CREATININE 0.8 mg/dL (0.7-1.3); GLOMERULAR FILTRATION RATE > 60; GLUCOSE 143 mg/dL (70-100); POTASSIUM 4.1 mEq/L (3.5-5.2); SODIUM 141 mEq/L (134-144)
[2017-01-25 10:10] VITALS: BP 121/74; PULSE 73; RESP 16; TEMP 98.6; O2SAT 96
== END 2017-01-25 10:05 | disposition home or self-care (01) ==
LOC: CED 07:41
DX: S29.9XXA Unspecified injury of thorax, initial encounter (principal); E86.9 Volume depletion, unspecified; Z87.891 Personal history of nicotine dependence; Z79.82 Long term (current) use of aspirin; W10.9XXA Fall (on) (from) unspecified stairs and steps, initial encounter; Y99.8 Other external cause status; Y93.01 Activity, walking, marching and hiking
CPT/HCPCS: 72070; 72100; 74177; 96361; 96372; 96374; 99285; J1170; J1885; Q9967; 80048-PO; 81003-PO; 81015-PO; 85025-PO

== ENCOUNTER → 2017-09-12 | Outpatient (CLI) | payer OTHER ==
[~2017-09-12] MED LIST: GADOBUTROL 10 ML VIAL IVP ONE
== END ==
LOC: FIMAGING 14:04
PROVIDERS: ATTEND Family Medicine
DX: M25.471 Effusion, right ankle (principal); M89.9 Disorder of bone, unspecified; M77.9 Enthesopathy, unspecified; Z87.39 Personal history of other diseases of the musculoskeletal system and connective tissue; Z86.19 Personal history of other infectious and parasitic diseases
CPT/HCPCS: 73723; A9585